=== PATIENT | female | born 2000 | race Caucasian/White ===

== ENCOUNTER 2024-11-23 22:02 | Inpatient (IN) ==
[2024-11-23 23:49] LABS: Basophils # (auto) 0.02 K/uL (0.00-0.20); Basophils % (auto) 0.1 %; Eosinophils # (auto) 0.02 K/uL (0.00-0.50); Eosinophils % (auto) 0.1 %; Hematocrit (blood only) 38.1 % (37.0-47.0); Immature Granulocytes # (auto) 0.06 K/uL (0.01-0.20); Immature Granulocytes % (auto) 0.4 %; Lymphocytes # (auto) 2.44 K/uL (1.20-3.40); Lymphocytes % (auto) 18.1 %; Mean Corpuscular Hemoglobin 30.4 pg (25.0-34.0); Mean Corpuscular Hgb Conc 34.1 g/dL (32.0-36.0); Mean Platelet Volume 9.9 fL (9.4-12.4); Monocytes # (auto) 1.54 K/uL (0.11-0.59); Monocytes % (auto) 11.4 %; Neutrophils # (auto) 9.38 K/uL (1.40-6.50); Neutrophils % (auto) 69.9 %; Platelet Count 206 K/uL (130-400); RDW Coefficient of Variation 11.9 % (11.5-14.5); RDW Standard Deviation 38.1 fL (36.4-46.3); Red Blood Count 4.28 M/uL (4.20-5.40); White Blood Count 13.46 K/ul (4.8-10.8)
[2024-11-23 23:56] LABS: Pregnancy Test, Serum Negative (Negative)
[2024-11-24] MEDS: SODIUM CHLORIDE 0.9% 1,000 ML IV ONE ×2 (00:01→01:56)
[2024-11-24] MEDS: diphenhydrAMINE 50 MG/ML VIAL IV STA (00:01)
[2024-11-24] MEDS: KETOROLAC TROMETHAMINE 15 MG/ML VIAL IV ONE (00:01)
[2024-11-24] MEDS: PROCHLORPERAZINE 2 ML IV ONE (00:02)
[2024-11-24 00:07] LABS: Albumin Globulin Ratio 1.6 (0.9-2); Albumin Level 4.3 gm/dl (3.4-5.0); BUN Creatinine Ratio 13.3 (10-20); Bilirubin,Total 0.4 mg/dl (0.2-1.0); Calcium 9.3 mg/dl (8.6-10.3); Creatinine Clr Calc Pharmacy 117.5 ml/min; Globulin 2.7 gm/dl (2.5-4.0); Potassium 3.9 mmol/L (3.5-5.1)
--- NOTE | 2024-11-24 00:30 | CT Scan Report ---
Exam(s): CT HEAD Without Contrast EXAM: CT Head Without Intravenous Contrast CLINICAL HISTORY: Reason for exam: OROZCO. TECHNIQUE: Axial computed tomography images of the head/brain without intravenous contrast. CTDI is 34.93 mGy and DLP is 546.36 mGy-cm. Automated exposure control was utilized for the study. A dose lowering technique was utilized adhering to the principles of ALARA. COMPARISON: No relevant prior studies available. FINDINGS: Brain: Unremarkable. No hemorrhage. No significant white matter disease. No edema. Ventricles: Unremarkable. No ventriculomegaly. Bones/joints: Unremarkable. No acute fracture. Soft tissues: Unremarkable. Sinuses: Fluid level in the minimally visualized left maxillary sinus. Rest of the partially visualized paranasal sinuses are clear. Mastoid air cells: Unremarkable as visualized. No mastoid effusion. IMPRESSION: 1. No evidence of acute intracranial abnormality. 2. Fluid level in the minimally visualized left maxillary sinus. Correlate for sinusitis. Electronically signed by: Russel Crowe M.D. 11/24/24 00:29 AM
--- NOTE | 2024-11-24 01:09 | Emergency Department Note ---
Impression & Plan Headache, Leukocytosis, Acute neck pain ED Provider Note CHIEF COMPLAINT: Headache HISTORY OF PRESENT ILLNESS: This 23-year-old female patient with no significant past medical history presents to the emergency department with complaints of a headache since 8 AM yesterday. Patient states the headache was progressive throughout the day but today noticed some neck pain associated with it. Patient states she tried a dose of ibuprofen with minimal improvement. She has not had any fevers or vomiting, she states she sometimes feels like her vision is blurry if she is not focused. Patient does not suffer from migraines regularly. She denies chance of . REVIEW OF SYSTEMS: A review of systems was performed with positives and pertinent negatives listed in the history of present illness. 10 systems were reviewed and are otherwise negative. ALLERGIES: see below MEDICATIONS: see below PMH: see below SOCIAL HISTORY: see below DDx: Migraine headache, viral illness, meningitis, musculoskeletal pain, among others. PHYSICAL EXAM: Vital signs reviewed. General: Well-appearing 23-year-old female, in no significant distress. HEENT: No scleral icterus, PERRLA, neck supple. moist mucous membranes Cardiovascular: Regular rate and rhythm, no extra sounds. Pulmonary: Clear to auscultation bilaterally, normal work of breathing. Abdomen: Soft, nontender, nondistended, positive bowel sounds. Musculoskeletal: Atraumatic, no peripheral edema. Neurologic: Patient awake alert and oriented x 3, speech is clear. No meningeal signs. Skin: Warm, dry, no rash EMERGENCY DEPARTMENT COURSE/MDM: This patient was evaluated and appeared to be in no significant distress. IV access was obtained and laboratory work was drawn. The patient was placed on the surveillance monitor and noted to be in a sinus tachycardia. She was hydrated with normal saline solution, given IV Compazine, Benadryl and Toradol. Patient's vital signs did improve. Laboratory work notes an elevated WBC at 13. Rapid strep and respiratory bio fire panel are negative. CT imaging of the head was performed and is negative for acute intracranial pathology. Patient was consented for lumbar puncture which was attempted at the bedside but unsuccessful. This was largely due to the patient's inability to cooperate with positioning and body habitus. Patient was medicated with IV ceftriaxone and vancomycin. She will require hospitalization and evaluation by radiology for fluoroscopy assisted lumbar puncture. The patient was made aware of the findings and plan and agreed. Dr. Palepu of the hospitalist service was consulted for further management. PROCEDURE:Lumbar Puncture Indication: Headache, leukocytosis Verbal consent was obtained after the risks and benefits were explained, including but not limited to headache, bleeding/clotting, scarring, infection, pain, and bone/joint/nerve damage. At this time, the risks of the procedure are less than the risks of NOT performing the procedure. A time out was taken and the correct patient and site identified. The patient was placed in the left lateral decubitus position and the back was prepped with betadine and draped in the standard fashion. The L3 intervertebral space was identified, anesthetized locally with 1% lidocaine without epinephrine, and the spinal needle was inserted through the skin with the bevel parallel to the dural fibers. The needle was carefully advanced unsuccessfully. No CSF was obtained. A second attempt was made 1 disc space higher however also unsuccessful. Largely due to patient's inability to position and body habitus. A bandaid was placed and the patient was placed in the supine position. The patient tolerated the procedure well and there were no complications. MONITORING: An order for cardiac monitoring was placed and the patient is noted to be in a sinus tachycardia at 105 beats per minute. RADIOLOGY: to my interpretation reveals a head CT is negative for acute intracranial pathology, please see radiology's over read below. DISPOSITION: Admission Past Med/Surg History Problem List Severe headache Acute neck pain (Acute) Leukocytosis (Acute) Headache (Acute) Social History Smoking Status: Never smoker Hx Alcohol Use: No Hx Substance Use: No Preferred Language: Slovenian Communication Ability: Effective [employer] Director Required: No Beliefs That Will Affect Care: None Current Living Situation: Alone Other Information That Helps Us Care for You: No Feels Safe at Home: Yes Assistive Devices: Glasses Allergies Allergies Allergy/AdvReac Type Severity Reaction Status Date / Time No Known Allergies Allergy Unverified 11/24/24 08:18 Home Meds Home Medications Medication Instructions Recorded Confirmed No Known Home Medications 11/24/24 11/24/24 Results & Data (ED) Vital Signs Vital Signs - 24 hr 11/24/24 03:02 11/24/24 03:30 11/24/24 03:30 Pulse Rate 110 H 96 H Pulse Rate [Apical] 100 H Pulse Rate from SpO2 Sensor Pulse Rhythm [Apical] Regular Respiratory Rate 19 16 Respiratory Effort / Characteristics Non-Labored Spontaneous Respiratory Depth Normal Respiratory Pattern Regular Blood Pressure 126/77 Blood Pressure [Right Arm] 126/77 Blood Pressure Mean 92 Blood Pressure Mean [Right Arm] 93 Pulse Oximetry 99 98 Oxygen Delivery Method Room Air Room Air 11/24/24 04:00 11/24/24 04:30 11/24/24 04:36 Pulse Rate 98 H 101 H 100 H Pulse Rate [Apical] Pulse Rate from SpO2 Sensor 100 H Pulse Rhythm [Apical] Respiratory Rate 17 18 18 Respiratory Effort / Characteristics Respiratory Depth Respiratory Pattern Blood Pressure 124/80 121/83 Blood Pressure [Right Arm] Blood Pressure Mean 92 98 Blood Pressure Mean [Right Arm] Pulse Oximetry 96 96 96 Oxygen Delivery Method Room Air Room Air Room Air 11/24/24 05:00 Pulse Rate 99 H Pulse Rate [Apical] Pulse Rate from SpO2 Sensor Pulse Rhythm [Apical] Respiratory Rate 17 Respiratory Effort / Characteristics Respiratory Depth Respiratory Pattern Blood Pressure 113/77 Blood Pressure [Right Arm] Blood Pressure Mean 88 Blood Pressure Mean [Right Arm] Pulse Oximetry 96 Oxygen Delivery Method Room Air Home Medications Current Medication List: was personally reviewed by me Laboratory Data Attestation: I reviewed the patient's lab results. 11/24/24 09:18 11/24/24 09:18 Lab Results 11/23/24 11/24/24 Range/Units 23:30 00:15 WBC 13.46 H (4.8-10.8) K/ul RBC 4.28 (4.20-5.40) M/uL Hgb 13.0 (12.0-16.0) g/dl Hct 38.1 (37.0-47.0) % MCV 89.0 (80.0-100.0) fL MCH 30.4 (25.0-34.0) pg MCHC 34.1 (32.0-36.0) g/dL RDW Std Deviation 38.1 (36.4-46.3) fL RDW Coeff of Benji 11.9 (11.5-14.5) % Plt Count 206 (130-400) K/uL MPV 9.9 (9.4-12.4) fL Immature Gran % (Auto) 0.4 % Neut % (Auto) 69.9 % Lymph % (Auto) 18.1 % [place] % (Auto) 11.4 % Eos % (Auto) 0.1 % Baso % (Auto) 0.1 % Neut # (Auto) 9.38 H (1.40-6.50) K/uL Lymph # (Auto) 2.44 (1.20-3.40) K/uL [place] # (Auto) 1.54 H (0.11-0.59) K/uL Eos # (Auto) 0.02 (0.00-0.50) K/uL Baso # (Auto) 0.02 (0.00-0.20) K/uL Immature Gran # (Auto) 0.06 (0.01-0.20) K/uL Sodium 139 (136-145) mmol/L Potassium 3.9 (3.5-5.1) mmol/L Chloride 106 (98-107) mmol/L Carbon Dioxide 27 (21-32) mmol/L Anion Gap 6 (3-11) BUN 11 (6-23) mg/dl Creatinine 0.83 (0.6-1.2) mg/dl Est Cr Clr Drug Dosing 117.5 ml/min eGFR 101.52 BUN/Creatinine Ratio 13.3 (10-20) Glucose 107 H (70-99(Fasting)) mg/dl Calcium 9.3 (8.6-10.3) mg/dl Total Bilirubin 0.4 (0.2-1.0) mg/dl AST 11 L (13-39) U/L ALT 11 (7-52) U/L Alkaline Phosphatase 62 (34-104) U/L Total Protein 7.0 (6.0-8.3) gm/dl Albumin 4.3 (3.4-5.0) gm/dl Globulin 2.7 (2.5-4.0) gm/dl Albumin/Globulin Ratio 1.6 (0.9-2) HCG, Qual Negative (Negative) Adenovirus (PCR) Not Detected (NotDetected) B. pertussis DNA (PCR) Not Detected (NotDetected) B.parapertussis DNA PCR Not Detected (NotDetected) C. pneumoniae DNA (PCR) Not Detected (NotDetected) Coronavirus OC43 (PCR) Not Detected (NotDetected) Coronavirus HKU1 (PCR) Not Detected (NotDetected) Coronavirus 229E (PCR) Not Detected (NotDetected) SARS-CoV-2 (PCR) Not Detected (NotDetected) Coronavirus NL63 (PCR) Not Detected (NotDetected) Human Metapneumovir PCR Not Detected (NotDetected) Influenza Type A (PCR) Not Detected (NotDetected) Influenza Type B (PCR) Not Detected (NotDetected) M. pneumoniae (PCR) Not Detected (NotDetected) Parainfluenza 1 (PCR) Not Detected (NotDetected) Parainfluenza 2 (PCR) Not Detected (NotDetected) Parainfluenza 3 (PCR) Not Detected (NotDetected) Parainfluenza 4 (PCR) Not Detected (NotDetected) RSV (PCR) Not Detected (NotDetected) Entero/Rhino (PCR) Not Detected (NotDetected) Group A Strep (PCR) NOT DETECTED (NotDetected) Administered Medications Acetaminophen (Ofirmev) 1,000 mg in 100 mls @ 400 mls/hr IV Q8H PRN PRN Reason: Mild pain or Fever Stop: 11/27/24 09:08 Last Infusion: 11/24/24 20:08 Dose: Infused Documented By: Admin: 11/24/24 19:53 Dose: 400 mls/hr Documented By: SIERRA Ceftriaxone Sodium (Rocephin) 2,000 mg in 50 mls @ 100 mls/hr IV Q12H [facility] Stop: 12/04/24 15:59 Last Infusion: 11/24/24 18:29 Dose: Infused Documented By: Admin: 11/24/24 17:17 Dose: 100 mls/hr Documented By: BRENNAN Sodium Chloride (Nss) 1,000 mls @ 100 mls/hr IV .Q10H [facility] Stop: 11/25/24 05:08 Last Admin: 11/24/24 19:50 Dose: 100 mls/hr Documented By: Infusion: 11/24/24 19:37 Dose: Infused Documented By: Admin: 11/24/24 09:37 Dose: 100 mls/hr Documented By: BRENNAN Vancomycin HCl 1,250 mg/ (Sodium Chloride) 275 mls @ 200 mls/hr IV Q8H [facility] Stop: 11/26/24 19:59 Last Infusion: 11/24/24 22:45 Dose: Infused Documented By: Admin: 11/24/24 21:19 Dose: 200 mls/hr Documented By: SIERRA Discontinued Medications Diphenhydramine HCl (Diphenhydramine 50 Mg/Ml Vial) 25 mg IV NOW STA Stop: 11/23/24 23:41 Last Admin: 11/24/24 00:01 Dose: 25 mg Documented By: LUL Prochlorperazine (Compazine) 2 mls @ 1 mls/min IV ONE ONE Stop: 11/23/24 23:41 Last Admin: 11/24/24 00:02 Dose: 1 mls/min Documented By: LUL Sodium Chloride (Nss) 1,000 mls @ 999 mls/hr IV .Q1H1M ONE Stop: 11/24/24 00:41 Last Infusion: 11/24/24 01:00 Dose: Infused Documented By: Admin: 11/24/24 00:01 Dose: 999 mls/hr Documented By: LUL Sodium Chloride (Nss) 1,000 mls @ 999 mls/hr IV .Q1H1M ONE Stop: 11/24/24 02:18 Last Infusion: 11/24/24 03:05 Dose: Infused Documented By: Admin: 11/24/24 01:56 Dose: 999 mls/hr Documented By: LUL Ceftriaxone Sodium (Rocephin) 2,000 mg in 50 mls @ 100 mls/hr IV NOW STA Stop: 11/24/24 03:44 Last Infusion: 11/24/24 04:40 Dose: Infused Documented By: Admin: 11/24/24 04:03 Dose: 100 mls/hr Documented By: LUL Vancomycin HCl 2,000 mg/ (Sodium Chloride) 540 mls @ 200 mls/hr IV ONE ONE Stop: 11/24/24 12:11 Last Infusion: 11/24/24 14:48 Dose: Infused Documented By: Admin: 11/24/24 10:47 Dose: 200 mls/hr Documented By: BRENNAN Ketorolac Tromethamine (Ketorolac Tromethamine 15 Mg/Ml Vial) 10 mg IV NOW ONE Stop: 11/23/24 23:41 Last Admin: 11/24/24 00:01 Dose: 10 mg Documented By: LUL Lidocaine HCl (Lidocaine 1% Local 20 Ml Vial) Confirm Administered Dose 1 ml .ROUTE .STK-MED ONE Stop: 11/24/24 02:58 Last Admin: 11/24/24 05:01 Dose: Not Given Documented By: LUL Lidocaine HCl (Lidocaine 1% Local 20 Ml Vial) 10 ml INJ NOW ONE Stop: 11/24/24 05:00 Last Admin: 11/24/24 05:00 Dose: 10 ml Documented By: LUL Imaging Data Radiologist's Impression: Head CT 11/23/24 23:41 Exam(s): CT HEAD Without Contrast EXAM: CT Head Without Intravenous Contrast CLINICAL HISTORY: Reason for exam: OROZCO. TECHNIQUE: Axial computed tomography images of the head/brain without intravenous contrast. CTDI is 34.93 mGy and DLP is 546.36 mGy-cm. Automated exposure control was utilized for the study. A dose lowering technique was utilized adhering to the principles of ALARA. COMPARISON: No relevant prior studies available. FINDINGS: Brain: Unremarkable. No hemorrhage. No significant white matter disease. No edema. Ventricles: Unremarkable. No ventriculomegaly. Bones/joints: Unremarkable. No acute fracture. Soft tissues: Unremarkable. Sinuses: Fluid level in the minimally visualized left maxillary sinus. Rest of the partially visualized paranasal sinuses are clear. Mastoid air cells: Unremarkable as visualized. No mastoid effusion. IMPRESSION: 1. No evidence of acute intracranial abnormality. 2. Fluid level in the minimally visualized left maxillary sinus. Correlate for sinusitis. Electronically signed by: Russel Crowe M.D. 11/24/24 00:29 AM Discharge Plan Visit Data Chief Complaint: Pain (Generalized) Stated Complaint: HEAD PAIN, NECK PAIN ED Provider: Raysa Damon Discharge Problem: Headache, Leukocytosis, Acute neck pain Patient Disposition: Admitted As Inpatient Discharge Instructions Interventions: ED Discharge Assessment Last Done: 11/24/24 09:41 Discharge Problem: Headache Qualifiers: Headache type: unspecified Headache chronicity pattern: acute headache I ntractability: intractable Qualified Code(s): R51.9 - Headache, unspecified Leukocytosis Qualifiers: Leukocytosis type: unspecified Qualified Code(s): D72.829 - Elevated white blood cell count, unspecified
[2024-11-24 01:13] LABS: Adenovirus PCR Not Detected (NotDetected); Bordetella parapertussis PCR Not Detected (NotDetected); Bordetella pertussis PCR Not Detected (NotDetected); Chlamydia pneumoniae PCR Not Detected (NotDetected); Coronavirus 229E PCR Not Detected (NotDetected); Coronavirus CoV-2 (COVID19)PCR Not Detected (NotDetected); Coronavirus HKU1 PCR Not Detected (NotDetected); Coronavirus NL63 PCR Not Detected (NotDetected); Coronavirus OC43PCR Not Detected (NotDetected); Human Metapneumovirus PCR Not Detected (NotDetected); Influenza A PCR Not Detected (NotDetected); Influenza B PCR Not Detected (NotDetected); Mycoplasma pneumoniae PCR Not Detected (NotDetected); Parainfluenza Virus 1 PCR Not Detected (NotDetected); Parainfluenza Virus 2 PCR Not Detected (NotDetected); Parainfluenza Virus 3 PCR Not Detected (NotDetected); Parainfluenza Virus 4 PCR Not Detected (NotDetected); Respiratory Syncytial VirusPCR Not Detected (NotDetected); Rhinovirus/Enterovirus PCR Not Detected (NotDetected)
[2024-11-24] MEDS: cefTRIAXone SODIUM 2,000 MG/50 ML BAG IV STA (04:03)
[2024-11-24] MEDS: LIDOCAINE 1% LOCAL 20 ML VIAL INJ ONE (05:00)
[2024-11-24] MEDS: LIDOCAINE 1% LOCAL 20 ML VIAL ONE (05:01)
--- NOTE | 2024-11-24 05:13 | History & Physical Report ---
Date of Service November 24, 2024 Assessment & Plan (1) Severe headache: Plan: 23-year-old female with no significant past medical history comes because of severe headaches and neck pain starting yesterday morning. Currently with the pain medications the pain is better. No nausea or vomiting. Denies any fevers. No blurred visions or double vision. No earache. No runny nose. No sore throat. No cough. Appetite is okay. No chest pain or shortness of breath. No abdominal pain. Normal bowel and bladder movements. No rashes. Patient had mild tachycardia and blood pressure soft ,with the fluids improved. Severe headaches and neck pain Mild tachycardia and soft blood pressures improved with the fluids Mild leukocytosis Afebrile CT head okay Empiric Rocephin and Vanco IR lumbar puncture and will follow CSF studies Neuroconsult for further recommendations Monitor in the hospital DVT prophylaxis SCDs Disposition Medical floor History of Present Illness Chief Complaint: Severe headache and neck pain Primary Care Provider: NO PCP 23-year-old female with no significant past medical history comes because of severe headaches and neck pain starting yesterday morning. Currently with the pain medications the pain is better. No nausea or vomiting. Denies any fevers. No blurred visions or double vision. No earache. No runny nose. No sore throat. No cough. Appetite is okay. No chest pain or shortness of breath. No abdominal pain. Normal bowel and bladder movements. No rashes. Patient had mild tachycardia and blood pressure soft ,with the fluids improved. Past medical history. None. Past surgical history. None. Social history. Denies smoking. Alcohol use occasional. No drug use. Family history. Denies any family history. Allergies Allergy/AdvReac Type Severity Reaction Status Date / Time No Known Allergies Allergy Unverified 11/24/24 08:18 Home Medications Medication Instructions Recorded Confirmed Type No Known Home Medications 11/24/24 11/24/24 History Past Med/Surg History Problem List (Updated 11/24/24 @ 08:15 by Bobby Ma) Severe headache Acute neck pain (Acute) Leukocytosis (Acute) Headache (Acute) Social History Smoking Status: Never smoker Feels Safe at Home: Yes Review of Systems Review of Systems: All systems reviewed & are unremarkable except as noted in HPI & below Physical Exam Physical Exam: General- Not in distress. Head- atraumatic Eyes- EOMI. ENT- oropharynx clear Neck-currently supple, no JVD. Lungs- clear to auscultation no wheezing or crackles. Heart- regular rate and rhythm; no murmur, no gallop. Abdomen- normal bowel sounds, soft, nontender, no masses. Extremities- no pretibial edema, no erythema seen. Neuro- alert, oriented EOMI; no facial palsy; no dysarthria; moves extremities Results & Data Results & Data Vital Signs (Past 12 Hours) Vital Signs Temp Pulse Pulse Resp BP BP Pulse Ox 11/24/24 04:36 100 H 18 96 11/24/24 04:30 101 H 18 121/83 96 11/24/24 04:00 98 H 17 124/80 96 11/24/24 03:30 96 H 16 126/77 98 11/24/24 03:30 100 H 19 126/77 99 11/24/24 03:02 110 H 11/24/24 02:30 94 H 19 115/77 98 11/24/24 02:00 99 H 22 98/66 L 94 11/24/24 02:00 96 H 17 94/66 L 96 11/24/24 01:30 100 H 17 98/62 L 96 11/24/24 01:00 102 H 20 109/63 96 11/24/24 00:30 99 H 19 105/76 97 11/24/24 00:05 113 H 17 115/80 99 11/24/24 00:03 106 H 20 115/80 98 11/23/24 23:36 105 H 15 99 11/23/24 23:06 101 H 18 125/83 98 11/23/24 22:52 105 H 11/23/24 22:50 105 H 19 125/83 100 11/23/24 22:11 37.5 C 109 H 16 122/86 98 O2 Del Method 11/24/24 04:36 Room Air 11/24/24 04:30 Room Air 11/24/24 04:00 Room Air 11/24/24 03:30 Room Air 11/24/24 03:30 Room Air 11/24/24 03:02 11/24/24 02:30 Room Air 11/24/24 02:00 Room Air 11/24/24 02:00 Room Air 11/24/24 01:30 Room Air 11/24/24 01:00 Room Air 11/24/24 00:30 Room Air 11/24/24 00:05 Room Air 11/24/24 00:03 Room Air 11/23/24 23:36 Room Air 11/23/24 23:06 Room Air 11/23/24 22:52 11/23/24 22:50 Room Air 11/23/24 22:11 Room Air Diagnostic Findings Laboratory Results WBC 13.46 K/ul (4.8-10.8) H 11/23/24 23:30 RBC 4.28 M/uL (4.20-5.40) 11/23/24 23:30 Hgb 13.0 g/dl (12.0-16.0) 11/23/24 23:30 Hct 38.1 % (37.0-47.0) 11/23/24 23:30 MCV 89.0 fL (80.0-100.0) 11/23/24 23:30 MCH 30.4 pg (25.0-34.0) 11/23/24 23:30 MCHC 34.1 g/dL (32.0-36.0) 11/23/24 23:30 RDW Std Deviation 38.1 fL (36.4-46.3) 11/23/24 23:30 RDW Coeff of Benji 11.9 % (11.5-14.5) 11/23/24 23:30 Plt Count 206 K/uL (130-400) 11/23/24 23:30 MPV 9.9 fL (9.4-12.4) 11/23/24 23:30 Immature Gran % (Auto) 0.4 % 11/23/24 23:30 Neut % (Auto) 69.9 % 11/23/24 23:30 Lymph % (Auto) 18.1 % 11/23/24 23:30 [place] % (Auto) 11.4 % 11/23/24 23:30 Eos % (Auto) 0.1 % 11/23/24 23:30 Baso % (Auto) 0.1 % 11/23/24 23:30 Neut # (Auto) 9.38 K/uL (1.40-6.50) H 11/23/24 23:30 Lymph # (Auto) 2.44 K/uL (1.20-3.40) 11/23/24 23:30 [place] # (Auto) 1.54 K/uL (0.11-0.59) H 11/23/24 23:30 Eos # (Auto) 0.02 K/uL (0.00-0.50) 11/23/24 23:30 Baso # (Auto) 0.02 K/uL (0.00-0.20) 11/23/24 23:30 Immature Gran # (Auto) 0.06 K/uL (0.01-0.20) 11/23/24 23:30 Sodium 139 mmol/L (136-145) 11/23/24 23:30 Potassium 3.9 mmol/L (3.5-5.1) 11/23/24 23:30 Chloride 106 mmol/L (98-107) 11/23/24 23:30 Carbon Dioxide 27 mmol/L (21-32) 11/23/24 23:30 Anion Gap 6 (3-11) 11/23/24 23:30 BUN 11 mg/dl (6-23) 11/23/24 23:30 Creatinine 0.83 mg/dl (0.6-1.2) 11/23/24 23:30 Est Cr Clr Drug Dosing 117.5 ml/min 11/23/24 23:30 eGFR 101.52 11/23/24 23:30 BUN/Creatinine Ratio 13.3 (10-20) 11/23/24 23:30 Glucose 107 mg/dl (70-99(Fasting)) H 11/23/24 23:30 Calcium 9.3 mg/dl (8.6-10.3) 11/23/24 23:30 Total Bilirubin 0.4 mg/dl (0.2-1.0) 11/23/24 23:30 AST 11 U/L (13-39) L 11/23/24 23:30 ALT 11 U/L (7-52) 11/23/24 23:30 Alkaline Phosphatase 62 U/L (34-104) 11/23/24 23:30 Total Protein 7.0 gm/dl (6.0-8.3) 11/23/24 23:30 Albumin 4.3 gm/dl (3.4-5.0) 11/23/24 23:30 Globulin 2.7 gm/dl (2.5-4.0) 11/23/24 23:30 Albumin/Globulin Ratio 1.6 (0.9-2) 11/23/24 23:30 HCG, Qual Negative (Negative) 11/23/24 23:30 Adenovirus (PCR) Not Detected (NotDetected) 11/24/24 00:15 B. pertussis DNA (PCR) Not Detected (NotDetected) 11/24/24 00:15 B.parapertussis DNA PCR Not Detected (NotDetected) 11/24/24 00:15 C. pneumoniae DNA (PCR) Not Detected (NotDetected) 11/24/24 00:15 Coronavirus OC43 (PCR) Not Detected (NotDetected) 11/24/24 00:15 Coronavirus HKU1 (PCR) Not Detected (NotDetected) 11/24/24 00:15 Coronavirus 229E (PCR) Not Detected (NotDetected) 11/24/24 00:15 SARS-CoV-2 (PCR) Not Detected (NotDetected) 11/24/24 00:15 Coronavirus NL63 (PCR) Not Detected (NotDetected) 11/24/24 00:15 Human Metapneumovir PCR Not Detected (NotDetected) 11/24/24 00:15 Influenza Type A (PCR) Not Detected (NotDetected) 11/24/24 00:15 Influenza Type B (PCR) Not Detected (NotDetected) 11/24/24 00:15 M. pneumoniae (PCR) Not Detected (NotDetected) 11/24/24 00:15 Parainfluenza 1 (PCR) Not Detected (NotDetected) 11/24/24 00:15 Parainfluenza 2 (PCR) Not Detected (NotDetected) 11/24/24 00:15 Parainfluenza 3 (PCR) Not Detected (NotDetected) 11/24/24 00:15 Parainfluenza 4 (PCR) Not Detected (NotDetected) 11/24/24 00:15 RSV (PCR) Not Detected (NotDetected) 11/24/24 00:15 Entero/Rhino (PCR) Not Detected (NotDetected) 11/24/24 00:15 Group A Strep (PCR) NOT DETECTED (NotDetected) 11/24/24 00:[address] 11/23/24 23:41 Exam(s): CT HEAD Without Contrast EXAM: CT Head Without Intravenous Contrast CLINICAL HISTORY: Reason for exam: OROZCO. TECHNIQUE: Axial computed tomography images of the head/brain without intravenous contrast. CTDI is 34.93 mGy and DLP is 546.36 mGy-cm. Automated exposure control was utilized for the study. A dose lowering technique was utilized adhering to the principles of ALARA. COMPARISON: No relevant prior studies available. FINDINGS: Brain: Unremarkable. No hemorrhage. No significant white matter disease. No edema. Ventricles: Unremarkable. No ventriculomegaly. Bones/joints: Unremarkable. No acute fracture. Soft tissues: Unremarkable. Sinuses: Fluid level in the minimally visualized left maxillary sinus. Rest of the partially visualized paranasal sinuses are clear. Mastoid air cells: Unremarkable as visualized. No mastoid effusion. IMPRESSION: 1. No evidence of acute intracranial abnormality. 2. Fluid level in the minimally visualized left maxillary sinus. Correlate for sinusitis. Electronically signed by: Russel Crowe M.D. 11/24/24 00:29 AM Code Status & VTE Plan VTE Prophylaxis Plan VTE Prophylaxis will be ordered: Yes
[2024-11-24] MEDS ORDERED: KETOROLAC TROMETHAMINE 15 MG/ML VIAL IV PRN (09:09)
[2024-11-24] MEDS ORDERED: VANCOMYCIN HCL 1,000 MG/270 ML BAG IV SCH (09:09)
[2024-11-24] MEDS ORDERED: VANCOMYCIN CONSULT ACTIVE PRN (09:09)
[2024-11-24] MEDS: SODIUM CHLORIDE 0.9% 1,000 ML IV SCH (09:37)
[2024-11-24 09:46] LABS: Basophils # (auto) 0.02 K/uL (0.00-0.20); Basophils % (auto) 0.2 %; Hematocrit (blood only) 38.4 % (37.0-47.0); Hemoglobin 13.1 g/dl (12.0-16.0); Immature Granulocytes # (auto) 0.06 K/uL (0.01-0.20); Immature Granulocytes % (auto) 0.5 %; Lymphocytes # (auto) 1.88 K/uL (1.20-3.40); Lymphocytes % (auto) 15.4 %; Mean Corpuscular Hemoglobin 30.8 pg (25.0-34.0); Mean Corpuscular Hgb Conc 34.1 g/dL (32.0-36.0); Mean Corpuscular Volume 90.1 fL (80.0-100.0); Monocytes # (auto) 0.99 K/uL (0.11-0.59); Monocytes % (auto) 8.1 %; Neutrophils # (auto) 9.23 K/uL (1.40-6.50); Neutrophils % (auto) 75.8 %; Platelet Count 199 K/uL (130-400); RDW Coefficient of Variation 11.8 % (11.5-14.5); RDW Standard Deviation 38.5 fL (36.4-46.3); Red Blood Count 4.26 M/uL (4.20-5.40); White Blood Count 12.18 K/ul (4.8-10.8)
[2024-11-24 09:56] LABS: BUN Creatinine Ratio 11.6 (10-20); Calcium 8.9 mg/dl (8.6-10.3); Creatinine Clr Calc Pharmacy 141.3 ml/min; Magnesium 1.8 mg/dl (1.7-2.4); Potassium 3.9 mmol/L (3.5-5.1)
[2024-11-24] MEDS: VANCOMYCIN HCL 2,000 MG in SODIUM CHLORIDE 0.9% 500 ML IV ONE (10:47)
[2024-11-24 12:24] LABS: Total Protein CSF 32.6 mg/dl (15-45)
[2024-11-24 13:43] LABS: Cryptococcus neoformans/ga PCR Not Detected (NotDetected); Cytomegalovirus PCR Not Detected (NotDetected); Enterovirus PCR Not Detected (NotDetected); Escherichia coli K1 PCR Not Detected (NotDetected); Haemophilius influenzae PCR Not Detected (NotDetected); Herpes Simplex Virus 1 PCR Not Detected (NotDetected); Herpes Simplex Virus 2 PCR Not Detected (NotDetected); Human Herpes Virus 6 PCR Not Detected (NotDetected); Human Parechovirus PCR Not Detected (NotDetected); Listeria monocytogenes PCR Not Detected (NotDetected); Neisseria meningitidis PCR Not Detected (NotDetected); Streptococcus agalactiae PCR Not Detected (NotDetected); Streptococcus pneumoniae PCR Not Detected (NotDetected); Varicella Zoster Virus PCR Not Detected (NotDetected)
[2024-11-24 13:50] LABS: Appearance CSF Clear; CSF Count Tube # 3; CSF Xanthrochromic No xanthochromia; Color CSF Colorless; Mononuclear WBC CSF Auto 53.6 %; Polynuclear WBC CSF Auto 46.4 %; Red Blood Cell CSF Manual 0 (0-); White Blood Cell CSF Auto 166 /uL (0-5)
--- NOTE | 2024-11-24 14:32 | Fluoroscopy Report ---
LUMBAR PUNCTURE UNDER FLUOROSCOPY CLINICAL HISTORY: Meningitis; severe headache PROCEDURE: Procedure and risks were explained. Informed consent was obtained. A final timeout was com pleted. The patient was placed prone on the fluoroscopic exam table. The lower lumbar region was prep ped and draped in sterile fashion. 1% lidocaine was utilized for skin anesthesia. Utilizing fluoroscopic guidance, a 22-gauge Sprotte spinal needle was advanced into the intrathecal s pace at the L2-3 disc space level. Fluoroscopic spot images were obtained. Approximately 8 mL of dinorah r CSF fluid was removed and sent to lab for analysis. The needle was removed and Band-Aid applied. Th e patient tolerated the procedure well. Vital signs will be monitored postprocedure. Fluoroscopy time 18 seconds. Study dosed 17.56 mGy. IMPRESSION: Lumbar puncture as above. Performed, dictated, and signed by Dmitriy Burger PA-C; to be co-signed by Dr. Nikko Ross. Electronically signed by: Nikko Ross M.D. 11/24/2024 2:48 PM
--- NOTE | 2024-11-24 14:48 | Communication Note ---
Date of Service: November 24, 2024 Patient was seen and examined at bedside. Patient's fianc and mother were at bedside who were also updated on plan of care, answered all their questions to their full satisfaction. 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 Patient denies febrile illness or flulike illness or malaise or weakness or vision problem or earache or rhinorrhea or sore throat prior to arrival. Patient reported eating okay, no acute changes in bowel or bladder habit. Patient denied any skin rashes. She is being managed for the following: Severe headache/neck pain Rule out meningitis Likely sepsis POA in the setting of possible meningitis Patient presented with severe headache and neck pain of 1 day duration, denied fever/malaise/weakness/visual disturbances. At presentation, leukocytosis and tachycardia noted. Blood pressure was soft. renal functions and liver functions WNL. Beta-hCG test negative. Respiratory BioFire negative. LP at ED was unsuccessful, status post IR LP on 11/24. admitting CT head with no acute intracranial finding. LP fluid analysis 11/24: WBC 166, polynuclear WBC 46.4%, mononuclear percentage 53.6. Other CSF serologies so far negative. Follow-up on cryptococcal antigen test and LP fluid & Blood culture Continue with Rocephin 11/24 and vancomycin 11/24. Continue with pain management, patient reports improvement in her headache. LP fluid analysis findings were discussed with the patient and her family incl uding mother and fianc at bedside, answered all their questions, discussed plan of care, they voiced understanding. Neurology consult, await recommendation ID consult, await recommendation. DVT prophylaxis: SCDs for now Disposition: Medical floor For detailed information on the patient, refer to today's H&P note.
--- NOTE | 2024-11-24 15:18 | Pharmacy Report ---
Pharmacy PK ABX Note - Date of Service November 24, 2024 - Assessment and Plan Assessment 23 year old F receiving empiric vancomycin and ceftriaxone for treatment of possible meningitis. Pertinent microbiologic data includes: blood/CSF cultures pending. Neurology and infectious diseases consulted. Leukocytosis noted (WBC of 12 K). LP completed - no organisms detected, WBC elevated at 166. Patient afebrile, but tachycardic. Day # 1 of antimicrobial therapy. Plan Vancomycin * Loading dose: 2000 mg IV x 1 * Maintenance dose: 1250 mg IV every 8 hours * Regimen is predicted to achieve target AUC/RADHA of 400-600 mg/L.hr * Will order level if therapy is to be continued beyond 48 hours Ceftriaxone * 2 g IV q12h appropriate empirically for meningitis Pharmacy will continue to follow and will adjust dose/frequency as necessary. Thank you. Pharmacy has transitioned to AUC monitoring for vancomycin. AUC/RADHA is the preferred PK/PD target and is associated with decreased risk of nephrotoxicity compared to traditional trough targets.
[2024-11-24] MEDS: cefTRIAXone SODIUM 2,000 MG/50 ML BAG IV SCH (17:17)
[2024-11-24] MEDS: ACETAMINOPHEN 1,000 MG/100 ML VIAL IV PRN (19:53)
[2024-11-24 21:11] VITALS: RESP 16
[2024-11-24] MEDS: VANCOMYCIN HCL 1,250 MG in SODIUM CHLORIDE 0.9% 250 ML IV SCH (21:19)
[2024-11-25 06:34] LABS: Hematocrit (blood only) 37.3 % (37.0-47.0); Hemoglobin 12.5 g/dl (12.0-16.0); Mean Corpuscular Hemoglobin 30.2 pg (25.0-34.0); Mean Corpuscular Hgb Conc 33.5 g/dL (32.0-36.0); Mean Corpuscular Volume 90.1 fL (80.0-100.0); Mean Platelet Volume 9.9 fL (9.4-12.4); Platelet Count 179 K/uL (130-400); RDW Coefficient of Variation 11.9 % (11.5-14.5); RDW Standard Deviation 38.8 fL (36.4-46.3); Red Blood Count 4.14 M/uL (4.20-5.40); White Blood Count 7.09 K/ul (4.8-10.8)
[2024-11-25 06:49] LABS: BUN Creatinine Ratio 12.3 (10-20); Calcium 8.5 mg/dl (8.6-10.3); Creatinine Clr Calc Pharmacy 133.6 ml/min; Magnesium 1.7 mg/dl (1.7-2.4); Phosphorus 2.9 mg/dl (2.5-4.9); Potassium 3.6 mmol/L (3.5-5.1)
[2024-11-25] MEDS: ADVANCED PROBIOTIC 625 MG CAPSULE PO SCH (08:56)
--- NOTE | 2024-11-25 11:41 | Infectious Disease Consult ---
Date of Service November 25, 2024 Telehealth Information I performed this visit using a real-time telehealth connection between my location and the patients location ([facility]). After connecting through interactive tele-video, patient was identified by name and date of and/or wristband check.Patient (or authorized healthcare sales promotion representative) was informed that this was a telemedicine visit and it was being conducted confidentially over secure lines. My office door was closed and no one else was present in the room with me.Patient (or authorized healthcare sales promotion representative) provided consent to proceed with the visit, expressed an understanding of privacy and security of the telemedicine visit, and gave permission to have a hospital sales promotion representative in the room in order to assist with the visit and to conduct portions of the visit, as needed. I informed the patient (or authorized healthcare sales promotion representative) that I reviewed their record and presented the opportunity for them to ask any questions regarding the visit today. The patient agreed to participate. Assessment & Plan (1) Severe headache: (2) Maxillary sinusitis: Plan Patient who presented with severe headache CT head negative s/p LP on ceftriaxone and vancomycin .Recommend adding IV acyclovir pending finalization of her CSF findings and culture .If her meningitis panel and CSF culture finalizes as no growth would recommend discontinuing antimicrobials.Consider an ENT consult if there are concerns for sinusitis being the cause of her headaches. Thank you for allowing us to participate in the care of this patient ID will continue to follow History of Present Illness History of Present Illness 23 y/o F no significant past medical history presented to [facility] ED with severe headaches and neck pain which started the day prior to admission.She denies any nausea,vomiting or fevers. There is no history of blurred visions or double vision and patient does not have any upper respiratory symptoms and denies any anorexia,chest pain or shortness of breath. Her CT head was unrevealing except for left maxillary sinusitis and she is s/p LP on empiric ceftriaxone and vancomycin Allergies Allergy/AdvReac Type Severity Reaction Status Date / Time No Known Allergies Allergy Unverified 11/24/24 08:18 Home Medications Medication Instructions Recorded Confirmed Type No Known Home Medications 11/24/24 11/24/24 History Patient History Social History Smoking Status: Never smoker Hx Alcohol Use: No Hx Substance Use: No Preferred Language: Venezuelan Communication Ability: Effective Back Hanger Required: No Beliefs That Will Affect Care: None Current Living Situation: Alone Other Information That Helps Us Care for You: No Feels Safe at Home: Yes Assistive Devices: Glasses Review of Systems Patient reports her her headache has improved and she is awake alert and oriented Physical Exam Patient awake alert and oriented in no respiratory distress Results & Data Vital Signs (Past 12 Hours) Vital Signs Temp Pulse Resp BP Pulse Ox O2 Del Method 11/25/24 07:12 36.8 C 88 16 122/79 98 Room Air Laboratory Results Blood Culture Aerobic Preliminary 11/25/24-1100 No growth in Aerobic bottle after 24 hours. Blood Culture Anaerobic PENDING Diagnostic Findings FINDINGS: Brain: Unremarkable. No hemorrhage. No significant white matter disease. No edema. Ventricles: Unremarkable. No ventriculomegaly. Bones/joints: Unremarkable. No acute fracture. Soft tissues: Unremarkable. Sinuses: Fluid level in the minimally visualized left maxillary sinus. Rest of the partially visualized paranasal sinuses are clear. Mastoid air cells: Unremarkable as visualized. No mastoid effusion. IMPRESSION: 1. No evidence of acute intracranial abnormality. 2. Fluid level in the minimally visualized left maxillary sinus. Correlate for sinusitis (2) Maxillary sinusitis Recurrence: not specified as recurrent
--- NOTE | 2024-11-25 12:01 | Hospitalist Progress Note ---
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 Patient denies febrile illness or flulike illness or malaise or weakness or vision problem or earache or rhinorrhea or sore throat prior to arrival. Patient reported eating okay, no acute changes in bowel or bladder habit. Patient denied any skin rashes. She is being managed for the following: Severe headache/neck pain Rule out meningitis Likely sepsis POA in the setting of possible meningitis Patient presented with severe headache and neck pain of 1 day duration, denied fever/malaise/weakness/visual disturbances. At presentation, leukocytosis and tachycardia noted. Blood pressure was soft. renal functions and liver functions WNL. Beta-hCG test negative. Respiratory BioFire negative. LP at ED was unsuccessful, status post IR LP on 11/24. admitting CT head with no acute intracranial finding. Lyme screen negative. LP fluid analysis 11/24: WBC 166, polynuclear WBC 46.4%, mononuclear percentage 53.6. Other CSF serologies so far negative. Follow-up on cryptococcal antigen test and LP fluid & Blood culture. Continue with Rocephin 11/24 and vancomycin 11/24. Continue with probiotic. Patient reports significant improvement in her headache and neck pain. Discussed with neurology, plan to get MR brain and MR C-spine with and without contrast. Order placed, follow-up. ID consult, pending. Follow. DVT prophylaxis: SCDs for now Disposition: Medical floor Admission and Anticipated Discharge Date Admission Date: November 24, 2024 Subjective Patient was seen and examined at bedside. Patient was lying in bed, on room air, NAD, resting comfortably. Patient's mother and fianc at bedside who were also updated on plan of care. Patient denies any new review of symptoms. Patient reports improvement in her headache, currently 3/10 in intensity without pain medications. Patient denies any visual disturbances or numbness/tingling of limbs. Physical Exam Physical Exam: General- Not in distress. Head- atraumatic Eyes- EOMI. ENT- oropharynx clear Neck-currently supple, no JVD. Lungs- clear to auscultation no wheezing or crackles. Heart- regular rate and rhythm; no murmur, no gallop. Abdomen- normal bowel sounds, soft, nontender, no masses. Extremities- no pretibial edema, no erythema seen. Neuro- alert, oriented EOMI; no facial palsy; no dysarthria; moves extremities Results & Data Results & Data Vital Signs (Past 12 Hours) Vital Signs Temp Pulse Resp BP Pulse Ox O2 Del Method 11/25/24 07:12 36.8 C 88 16 122/79 98 Room Air
[2024-11-25] MEDS: VANCOMYCIN LEVEL ONE (12:18)
--- NOTE | 2024-11-25 13:40 | Pharmacy Report ---
Pharmacy PK ABX Note - Date of Service November 25, 2024 - Assessment and Plan Assessment 23 year old F receiving empiric vancomycin and ceftriaxone for treatment of possible bacterial meningitis. Pertinent microbiologic data includes: blood/CSF cultures no growth to date. LP completed - CSF biofire unremarkable, CSF WBC elevated at 166. Patient with no pertinent PMH. Patient remains afebrile. Leukocytosis improving (12->7 K). Confirmed with hospitalist/ID provider - plan is to continue antibiotic regimen at this time pending CSF culture. Day # 2 of antimicrobial therapy. Plan Vancomycin * Current regimen: 1250 mg IV every 8 hours * Trough level obtained 11/25/24 resulted as 11.6 mcg/mL. This is predicted to achieve target AUC/RADHA of 400-600 mg/L.hr * Predicted AUC at steady state: 506 mg/L.hr * Continue 1250 mg IV every 8 hours * Repeat level ordered for: 11/27/24 Ceftriaxone * 2 g IV q12h appropriate empirically for meningitis Pharmacy will continue to follow and will adjust dose/frequency as necessary. Thank you. Pharmacy has transitioned to AUC monitoring for vancomycin. AUC/RADHA is the preferred PK/PD target and is associated with decreased risk of nephrotoxicity compared to traditional trough targets.
--- NOTE | 2024-11-25 15:25 | Neurology Consultation ---
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 She has undergone LP indicative of elevated WBC in CSF She has remained on antimicrobial tx Continue to monitor/control pain Continue to monitor for s/s of infection Consultation with infectious disease team pending Recommend MRI brain with and without contrast Recommend MRI cervical spine with and without contrast Continue frequent neurological assessments Obtain stat CT brain without contrast for any acute neurological decline Continue to monitor/control blood pressure & blood glucose Continue to monitor telemetry closely Continue to monitor renal and hepatic function, keep euvolemic Ok from neurology perspective for VTE prophylaxis PT/OT/SLT to eval and treat Recommend eval for MIKE and consider outpatient polysomnography Telehealth Consultation Telehealth Information Telehealth Information: I performed this visit using a real-time telehealth connection between my location and the patients location ([facility]). After connecting through interactive tele-video, patient was identified by name and date of and/or wristband check.Patient (or authorized healthcare patient portal representative) was informed that this was a telemedicine visit and it was being conducted confidentially over secure lines. My office door was closed and no one else was present in the room with me.Patient (or authorized healthcare patient portal representative) provided consent to proceed with the visit, expressed an understanding of privacy and security of the telemedicine visit, and gave permission to have a hospital patient portal representative in the room in order to assist with the visit and to conduct portions of the visit, as needed. I informed the patient (or authorized healthcare patient portal representative) that I reviewed their record and presented the opportunity for them to ask any questions regarding the visit today. The patient agreed to participate. History of Present Illness Reason for Consultation: Severe head & neck pain Requesting Physician: Dr Graf Attending Physician: Ruiz Jean MD History of Present Illness 23yo female presented with report of worsening headache and subsequently felt neck pain and restricted ROM. Has undergone CT brain without contrast revealing no overt evidence of acute intracranial pathology. She has undergone LP and has been treated with empiric antibiotics since admit. She does not report taking temperature prior to admission. No reported N/V. No reported flulike symptoms. She denies recent travel or sick contact. No report of trauma. She arrived with leukocytosis and was reportedly tachycardic. I have performed televideo consultation. She is alert & oriented; able to answer all questions appropr iately, name objects on televideo monitor, repeat phrases and perform complex/embedded commands without deficit. Neurological exam is non lateralizing/nonfocal in terms of motor strength and coordination. She is able to touch chin to chest and passively extend her cervical spine. She is able to passively rotate cervical spine bilaterally without report of pain or tenderness. She reports this is vastly improved since admission. Mother at bedside, all questions answered. Allergies Allergy/AdvReac Type Severity Reaction Status Date / Time No Known Allergies Allergy Unverified 11/24/24 08:18 Home Medications Medication Instructions Recorded Confirmed Type No Known Home Medications 11/24/24 11/24/24 History Patient History Social History Smoking Status: Never smoker Hx Alcohol Use: No Hx Substance Use: No Preferred Language: Tamazight Communication Ability: Effective Aircraft Technician Required: No Beliefs That Will Affect Care: None Current Living Situation: Alone Other Information That Helps Us Care for You: No Feels Safe at Home: Yes Assistive Devices: Glasses Physical Exam Neurological Examination: Mental Status: Awake and alert. Oriented to person, place, and time. Fluency naming repetition and comprehension appear grossly intact. Affect remains appropriate. CN testing: I: Denies changes in ability to smell II:Reports no changes in visual acuity III/IV/: No evidence of gaze preference, hippus, nystagmus or roving eye movements V: Facial sensation reportedly grossly intact to light touch bilaterally VII: Facial movements appear without evidence of asymmetry VIII: Hearing appears grossly intact to loud voice bilaterally IX/X: Palate appears to elevate symmetrically XI: Shoulder shrug appears symmetric/ grossly intact bilaterally XII: Tongue protrudes midline without evidence of biting Motor exam: Strength appears grossly intact/symmetric in all extremities Sensory: Sensation is reportedly grossly intact throughout Coordination: Finger to nose and heel to hinson were intact. No apparent evidence of dysmetria or dysdiadochokinesia Reflexes: Deferred Gait: Deferred Results & Data Vital Signs (Past 12 Hours) Vital Signs Temp Pulse Resp BP Pulse Ox O2 Del Method 11/25/24 14:57 36.3 C L 69 16 119/78 97 Room Air 11/25/24 07:12 36.8 C 88 16 122/79 98 Room Air Laboratory Results Abnormal lab results 11/25/24 Range/Units 06:00 RBC 4.14 L (4.20-5.40) M/uL Chloride 110 H (98-107) mmol/L Glucose 106 H (70-99(Fasting)) mg/dl Calcium 8.5 L (8.6-10.3) mg/dl Medications Administered Home Medications Medication Instructions Recorded Confirmed Last Taken No Known Home Medications 11/24/24 11/24/24 Unknown Active Medications Generic Name Dose Route Start Last Admin Trade Name Freq PRN Reason Stop Dose Admin Acetaminophen 1,000 mg in 100 mls @ 400 mls/hr 11/24/24 09:09 11/24/24 20:08 Ofirmev IV 11/27/24 09:08 Infused Q8H PRN Infusion Mild pain or Fever Ceftriaxone Sodium 2,000 mg in 50 mls @ 100 mls/hr 11/24/24 16:00 11/25/24 04:34 Rocephin IV 12/04/24 15:59 Infused Q12H ZOEY Infusion Vancomycin HCl 1,250 mg/ 275 mls @ 200 mls/hr 11/24/24 20:00 11/25/24 13:45 Sodium Chloride IV 12/04/24 19:59 Infused Q8H ZOEY Infusion Lactobacillus Acidophilus 1,250 mg 11/25/24 09:00 11/25/24 08:56 Advanced Probiotic 625 Mg Capsule PO 12/25/24 08:59 1,250 mg DAILY ZOEY Administration
[2024-11-25] MEDS: GADOBUTROL 65ML VIAL IV ONE (17:34)
--- NOTE | 2024-11-25 18:02 | Magnetic Resonance Report ---
MRI of the brain performed with and without IV contrast History: Head and neck pain Comparison: None Technique: Multiplanar T1 weighted, axial T2/FLAIR, and susceptibility images were obtained without intravenous contrast. Following intravenous gadolinium based contrast administration, axial T2 weighted, diffusion, and T1-weighted images were obtained. Findings: No evidence for intracranial mass lesion, mass-effect, midline shift, or abnormal extra-axial fluid collection. There is mild, diffuse, scattered areas of leptomeningeal enhancement. No masslike or nodular enhancement. The orbits are grossly unremarkable. The ventricles and sulci are within normal limits for age. No abnormally reduced diffusion or evidence for acute infarct. Normal intravascular flow voids. Impression: Mild, diffuse scattered areas of leptomeningeal enhancement, would be most compatible with the suspected history of meningitis. Rarely this may also occur in the setting of recent lumbar puncture. Electronically signed by Chaz Dominguez 11-25-2024 6:01 PM
--- NOTE | 2024-11-25 18:09 | Magnetic Resonance Report ---
MR cervical spine with and without contrast History: Neck pain Comparison: None Technique: Sagittal T1-weighted, sagittal T2-weighted, sagittal STIR, sagittal diffusion weighted, axial T2-weighted, and axial T2* gradient echo images of the cervical spine were obtained without intravenous contrast. T1-weighted images obtained with IV contrast. Findings: The cervical vertebrae are normally aligned. There is no disc height narrowing at any level. There is normal signal within and normal contour of the cervical spinal cord. No spinal canal or neural foraminal stenosis. No abnormality of the paraspinous soft tissues. No abnormal enhancement throughout the cervical spinal canal or of the spinal cord. Impression: Normal cervical spine MRI with and without IV contrast Electronically signed by Chaz Dominguez 11-25-2024 6:09 PM
[2024-11-25] MEDS ORDERED: VANCOMYCIN HCL 1,250 MG in SODIUM CHLORIDE 0.9% 250 ML IV SCH (20:00)
[2024-11-26 06:43] LABS: Hematocrit (blood only) 38.5 % (37.0-47.0); Mean Corpuscular Hemoglobin 30.4 pg (25.0-34.0); Mean Corpuscular Hgb Conc 33.8 g/dL (32.0-36.0); Mean Platelet Volume 9.7 fL (9.4-12.4); Platelet Count 205 K/uL (130-400); RDW Coefficient of Variation 11.8 % (11.5-14.5); RDW Standard Deviation 38.8 fL (36.4-46.3); Red Blood Count 4.28 M/uL (4.20-5.40); White Blood Count 9.34 K/ul (4.8-10.8)
[2024-11-26 07:16] LABS: BUN Creatinine Ratio 16.3 (10-20); Creatinine Clr Calc Pharmacy 113.4 ml/min; Magnesium 1.8 mg/dl (1.7-2.4)
[2024-11-26] MEDS: OPTIRAY 320 125ml IV ONE (09:56)
[2024-11-26] MEDS: DEXTROSE 5% IV SCH (11:31)
[2024-11-26] MEDS: ACYCLOVIR SOD IV SCH (11:31)
--- NOTE | 2024-11-26 11:41 | CT Scan Report ---
CT angio neck with con, CT angio head w con CLINICAL HISTORY: headache. TECHNIQUE: CT angiography of the head and neck was performed following intravenous administration of iodinated contrast. Coronal and sagittal MIPS were obtained from the axial data set and were submitte d for review. Automated dose lowering techniques and/or adjustment according to patient size were ut ilized for this examination. All measurements were calculated based on NASCET criteria. CT DOSE: 441.01 mGy.cm Comparison: Comparison is made to MRI brain 08/25/2025 FINDINGS: Lungs and soft tissues are unremarkable. CTA Neck: A 3 vessel aortic arch is shown. There is no significant atherosclerotic plaque in the aor tic arch or the origins of the innominate, left common carotid, and left subclavian arteries. The co mmon carotid, external carotid, cervical segments of the internal carotid arteries, and the cervical segments of the vertebral arteries are patent without hemodynamically significant stenosis. The left vertebral artery is dominant. CTA Head: The anterior and posterior cerebral circulations are patent. No hemodynamically significan t stenosis, aneurysm, dissection, or arteriovenous malformation is shown. IMPRESSION: 1. No occlusion, hemodynamically significant stenosis, or dissection in the major cervical arteries. 2. No occlusion, hemodynamically significant stenosis, aneurysm, dissection, or arteriovenous malfor mation in the major intracranial arteries. Assessment of stenosis of the internal carotid arteries is based on NASCET criteria. ACT 112: Negative or not required by law. Electronically signed by: Adama Nash M.D. 11/26/2024 11:39 AM
--- NOTE | 2024-11-26 14:32 | Communication Note ---
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
--- NOTE | 2024-11-26 14:39 | Hospitalist Progress Note ---
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 Patient denies febrile illness or flulike illness or malaise or weakness or vision problem or earache or rhinorrhea or sore throat prior to arrival. Patient reported eating okay, no acute changes in bowel or bladder habit. Patient denied any skin rashes. She is being managed for the following: Severe headache/neck pain Rule out meningitis Likely sepsis POA in the setting of possible meningitis Patient presented with severe headache and neck pain of 1 day duration, denied fever/malaise/weakness/visual disturbances. At presentation, leukocytosis and tachycardia noted. Blood pressure was soft. renal functions and liver functions WNL. Beta-hCG test negative. Respiratory BioFire negative. LP at ED was unsuccessful, status post IR LP on 11/24. admitting CT head with no acute intracranial finding. Lyme screen negative. LP fluid analysis 11/24: WBC 166, polynuclear WBC 46.4%, mononuclear percentage 53.6. Other CSF serologies so far negative. Follow-up on cryptococcal antigen test 11/24 LP culture neg. 11/24 Bl Cx [id number] Was on Rocephin [ 11/24 - 11/26 ] and vancomycin [ 11/24 - 11/26 ]. ID evaled, recommends dc antibiotic and add acyclovir. pros/cons explained to pt and her fiance, advised to maintain adequate hydration. Rocephin and vanc dc'd 11/26, acyclovir added 11/26. Neuro evaled, recommended MRI head and c spine; CTA H and N ---imagings done, no acute findings noted [Leptomeningeal enhancement noted and brain MRI suggestive of meningitis] Patient reports resolution of her headache and neck pain. Monitor pt for recurrence of headache, monitor cbc/vitals for recurrence of infection if any. DVT prophylaxis: SCDs for now Disposition: Medical floor Admission and Anticipated Discharge Date Admission Date: November 24, 2024 Subjective Patient was seen and examined at bedside. Patient was sitting up in chair, on room air, NAD, resting comfortably. Patient's fianc at bedside who was also updated on plan of care. Patient denies any new review of symptoms. Patient reports no headache. Patient denies any visual disturbances or numbness/tingling of limbs. Physical Exam Physical Exam: General- Not in distress. Head- atraumatic, no sinus tenderness. Eyes- EOMI. ENT- oropharynx clear Neck-currently supple, no JVD. Lungs- clear to auscultation no wheezing or crackles. Heart- regular rate and rhythm; no murmur, no gallop. Abdomen- normal bowel sounds, soft, nontender, no masses. Extremities- no pretibial edema, no erythema seen. Neuro- alert, oriented EOMI; no facial palsy; no dysarthria; moves extremities Results & Data Results & Data Vital Signs (Past 12 Hours) Vital Signs Temp Pulse Resp BP Pulse Ox O2 Del Method 11/26/24 14:05 36.9 C 81 16 105/72 99 Room Air 11/26/24 07:20 36.6 C 90 16 115/81 99 Room Air
[2024-11-27 00:36] LABS: Cryptococcal Antigen Not Detected (Not Detected); Source CSF
[2024-11-27 07:16] LABS: Hematocrit (blood only) 41.1 % (37.0-47.0); Hemoglobin 13.9 g/dl (12.0-16.0); Mean Corpuscular Hemoglobin 30.1 pg (25.0-34.0); Mean Corpuscular Hgb Conc 33.8 g/dL (32.0-36.0); Mean Platelet Volume 9.6 fL (9.4-12.4); Platelet Count 234 K/uL (130-400); RDW Coefficient of Variation 11.7 % (11.5-14.5); RDW Standard Deviation 37.4 fL (36.4-46.3); Red Blood Count 4.62 M/uL (4.20-5.40); White Blood Count 9.27 K/ul (4.8-10.8)
[2024-11-27 07:23] VITALS: BP 99/66; TEMP 97.3; O2SAT 97
[2024-11-27 07:31] LABS: Creatinine Clr Calc Pharmacy 131.8 ml/min
[2024-11-27] MEDS: VANCOMYCIN LEVEL ONE (11:32)
--- NOTE | 2024-11-27 11:46 | Discharge Summary ---
Date of Service November 27, 2024 Admission HPI Per Admitting Provider 23-year-old female with no significant past medical history comes because of severe headaches and neck pain starting yesterday morning. Currently with the pain medications the pain is better. No nausea or vomiting. Denies any fevers. No blurred visions or double vision. No earache. No runny nose. No sore throat. No cough. Appetite is okay. No chest pain or shortness of breath. No abdominal pain. Normal bowel and bladder movements. No rashes. Patient had mild tachycardia and blood pressure soft ,with the fluids improved. Past medical history. None. Past surgical history. None. Social history. Denies smoking. Alcohol use occasional. No drug use. Family history. Denies any family history. Admission Exam Per Admitting Provider General- Not in distress. Head- atraumatic Eyes- EOMI. ENT- oropharynx clear Neck-currently supple, no JVD. Lungs- clear to auscultation no wheezing or crackles. Heart- regular rate and rhythm; no murmur, no gallop. Abdomen- normal bowel sounds, soft, nontender, no masses. Extremities- no pretibial edema, no erythema seen. Neuro- alert, oriented EOMI; no facial palsy; no dysarthria; moves extremities Principal Diagnosis Severe headache/neck pain Rule out meningitis Likely sepsis POA in the setting of possible meningitis Discharge Exam General- Not in distress. Head- atraumatic, no sinus tenderness. Eyes- EOMI. ENT- oropharynx clear Neck-currently supple, no JVD. Lungs- clear to auscultation no wheezing or crackles. Heart- regular rate and rhythm; no murmur, no gallop. Abdomen- normal bowel sounds, soft, nontender, no masses. Extremities- no pretibial edema, no erythema seen. Neuro- alert, oriented EOMI; no facial palsy; no dysarthria; moves extremities Discharge Data Allergies Allergy/AdvReac Type Severity Reaction Status Date / Time No Known Allergies Allergy Unverified 11/24/24 08:18 Consultations 11/24/24 09:09 Consult Neurology Routine 11/24/24 14:10 Consult Infectious Diseases Routine Ordered Studies 11/23/24 23:41 CT head/brain wo con Stat 11/24/24 09:09 IR lumbar puncture diagnostic Routine 11/25/24 10:58 MR brain wo/w con Routine MR cervical spine wo/w con Routine 11/26/24 08:51 CTA head w con [CT angio head w con] Routine CTA neck with con [CT angio neck with con] Routine Hospital Course (1) Severe headache: 23-year-old lady with no significant PMH presented with 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 Patient denies febrile illness or flulike illness or malaise or weakness or vision problem or earache or rhinorrhea or sore throat prior to arrival. Patient reported eating okay, no acute changes in bowel or bladder habit. Patient denied any skin rashes. She was managed for the following: Severe headache/neck pain Rule out meningitis Likely sepsis POA in the setting of possible meningitis Likely bacterial meningitis, ruled out Patient presented with severe headache and neck pain of 1 day duration, denied fever/malaise/weakness/visual disturbances. At presentation, leukocytosis and tachycardia noted. Blood pressure was soft. renal functions and liver functions WNL. Beta-hCG test negative. Respiratory BioFire negative. LP at ED was unsuccessful, status post IR LP on 11/24. admitting CT head with no acute intracranial finding. Lyme screen negative. LP fluid analysis 11/24: WBC 166, polynuclear WBC 46.4%, mononuclear percentage 53.6. Other CSF serologies so far negative. Neg cryptococcal antigen test 11/24 LP culture neg. 11/24 Bl Cx NG48H Was on Rocephin [ 11/24 - 11/26 ] and vancomycin [ 11/24 - 11/26 ]. ID evaled, recommends dc antibiotic as less likely bacterial meningitis and add acyclovir. Rocephin and vanc dc'd 11/26, acyclovir added 11/26. Pt w/ no to minimal headache, no neurological s/s including vision changes. Neuro evaled, recommended MRI head and c spine; CTA H and N ---imagings done, no acute findings noted [Leptomeningeal enhancement noted and brain MRI suggestive of meningitis] Patient reports resolution of her headache and neck pain. 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 Pt updated again after d/w ID, Pt comfortable going home and states she will monitor her temp/bp/headache & vision status twice a day and maintain a log to take to PCP office within a week time. DVT prophylaxis: SCDs for now Disposition: Medical floor Patient is being discharged to home with following instruction at the point of discharge: Follow-up with your primary care physician within a week time and likely you will need labs CBC/CMP/magnesium/phosphorus. You are diagnosed with meningitis, likely viral. You are being discharged after thorough evaluation by infectious disease. If you have any neurological symptoms as discussed at the bedside [headache, neck pain, numbness or tingling anywhere in the body, worsening lethargy, visual changes, focal weakness of arms and limbs] reach out to the emergency immediately. As discussed at the bedside, maintain a log of your headache/vision changes twice a day, blood pressure measurement twice a day, temperature measurement twice a day to take to your PCP within a week time for transition of care evaluation. As discussed at the bedside, call [facility] to set yourself up with PCP within a week time. For headache and fever, you can use over the counter tylenol per manufacturer agent's recommendation. Take your medications as prescribed. Please make sure that you are able to get your medications today by calling your pharmacy before you leave the hospital so that your treatment continuity is not broken. Home Health Attestation I certify that this patient is under my care and that I, or a physicians assistant store manager trainee working with me, had a face to-face encounter that meets the home health [id number] encounter requirements with this patient. The encounter with the patient was in whole, or in part, for the following medical condition, which is the primary reason for home health care (list medical condition): I certify that, based on my findings, the following services are medically necessary home health services: My clinical findings support the need for the above services because: Further, I certify that my clinical findings support that this patient is homebound (i.e. absences from home require considerable and taxing effort and are for medical reasons or uatsdin services or infrequently or of short duration when for other reasons) because: Certification for Home Health Services: Based on the above findings, I certify that this patient is confined to the home and needs intermittent [facility] care, physical therapy and/or speech therapy or continues to need occupational therapy. The patient is under my care, and I have initiated the establishment of the plan of care. This patient will be followed by a physician who will periodically review the plan of care. Total Time Total Time Spent Total Time Spent (In Minutes): 35 Discharge Plan Discharge Items Patient Disposition: Home - Self-Care Reason For Visit: HEAD PAIN, NECK PAIN Discharge Diagnosis: Severe headache/neck pain Rule out meningitis Likely sepsis POA in the setting of possible meningitis Activity: Resume your previous activity Non-emergency contact: Primary Care Provider Call non-emergency contact if: you have any medication questions, your symptoms worsen, your pain is worsening and your temperature is above 101 Follow-up/Referrals: PCP,NO [Primary Care Provider] - Diet: Regular Addtl Attending Provider Instructions: Follow-up with your primary care physician within a week time and likely you will need labs CBC/CMP/magnesium/phosphorus. You are diagnosed with meningitis, likely viral. You are being discharged after thorough evaluation by infectious disease. If you have any neurological symptoms as discussed at the bedside [headache, neck pain, numbness or tingling anywhere in the body, worsening lethargy, visual changes, focal weakness of arms and limbs] reach out to the emergency immediately. As discussed at the bedside, maintain a log of your headache/vision changes twice a day, blood pressure measurement twice a day, temperature measurement twice a day to take to your PCP within a week time for transition of care evaluation. As discussed at the bedside, call [facility] to set yourself up with PCP within a week time. For headache and fever, you can use over the counter tylenol per manufacturer agent's recommendation. Take your medications as prescribed. Please make sure that you are able to get your medications today by calling your pharmacy before you leave the hospital so that your treatment continuity is not broken. Pending Studies at Discharge: Yes Stand-Alone Forms: My [facility] CNS Response, Smoking Cessation Medications and DC Order Prescriptions: No Action No Known Home Medications Discharge Orders: Discharge Order (Routine); Ordered 11/27/24 Ordered By: Ruiz Jean Admission Data Admit Date/Time: 11/24/24 05:06 Attending Provider: Ruiz Jean Admit Provider: Mejia Arias Primary Care Provider: PCP,NO Other Providers: Heaven Dalton; Darell Jordan; Heaven Lundy; Nikko Conklin; Waqar Girard; Ruy Law; Jonny Altamirano; Justine Gaitan; Khalif Bernal; aDvid Deras; Gurmeet Vázquez; Freddy Mcgee; Charley Dumont; Chioma Conde; Jonny Mcclelland; Elmira Dominguez; Donovan Camejo; Marisa Dsouza; Marcell Stover I.; Ashutosh Mckeon II; Chasidy Rodrigues; Janes Mendez; Renzo Sotelo; Cara Landon
[2024-11-27] MEDS: ENOXAPARIN INJ 40 MG/0.4 ML SYR SQ SCH (12:03)
[2024-11-27 12:16] VITALS: PULSE 100
== END 2024-11-27 13:01 | disposition home or self-care (01) | DRG 871 ==
LOC: EDBD → ED 22:02 → 3E 11-24 05:06 → SUATTDRO 11-24 05:06 → 3E 11-24 09:41